=== PATIENT | female | born 1930 | race Caucasian/White ===

== ENCOUNTER 2016-10-22 06:51 | Emergency (ER) | payer OTHER ==
[~2016-10-22] VITALS: Ht 154.9 cm; Wt 89.9 kg
[~2016-10-22 06:51] MED LIST: ASPIR-TRIN325 M1 PO; Ativan PO; CIPRO500 MG PO; FLAGYL500 MG PO; GLIPIZIDE10 MG PO; GLIPIZIDE5 MG PO; GLUCOPHAGE1000 MG PO; GLUCOPHAGE500 MG PO; Glucophage PO; Glucophage XR,Fortam PO; KEFLEX250 MG PO; LASIX40 MG PO; LIPITOR20 MG PO; LORAZEPAM0.5 MG PO; PERCOCET 5/31 TABLET PO; PROVENTIL HFA6.7 GM IH; Proventil,Ventolin H IH; SPIRIVA1 INHALATI IH; Symbicort 80-4.5 mcg IH; TRAMADOL HCL100 MG PO; ZITHROMAX250 MG PO; ZOFRAN4 MG PO
[2016-10-22] MEDS ORDERED: MOTRIN800 MG PO (07:15)
[2016-10-22] MEDS ORDERED: PREDNISONE20 MG PO (07:15)
[2016-10-22] MEDS ORDERED: FLEXERIL10 MG PO (07:15)
[2016-10-22 08:07] VITALS: BP 139/95
== END 2016-10-22 08:08 | disposition home or self-care (01) ==
LOC: EME 06:51
DX: M54.32 Sciatica, left side (principal); J45.909 Unspecified asthma, uncomplicated; J44.9 Chronic obstructive pulmonary disease, unspecified; E11.9 Type 2 diabetes mellitus without complications; Z79.84 Long term (current) use of oral hypoglycemic drugs; Z87.891 Personal history of nicotine dependence
CPT/HCPCS: 99281; 99283; J1885; J7512

== ENCOUNTER 2017-04-02 22:05 | Inpatient (IN) | payer OTHER ==
[~2017-04-02] VITALS: Ht 154.9 cm; Wt 87.3 kg
[~2017-04-02 22:05] MED LIST changes: +DULERA 100 MCG/13 GM IH; +FLEXERIL10 MG PO; +MOTRIN800 MG PO; +PREDNISONE20 MG PO; +REQUIP0.25 MG PO; +TYLENOL EXTRA500 MG PO
[2017-04-03 06:06] VITALS: BP 100/50
[2017-04-03 06:22] LABS: POINT-OF-CARE METER ID UU14174212
[2017-04-03 06:31] LABS: PROTHROMBIN TIME 11.1 SEC (10.2-12.9)
[2017-04-03 06:34] LABS: PTT 30.8 SEC (25-37)
[2017-04-03 10:25] LABS: POINT-OF-CARE METER ID UU13113675
[2017-04-03 13:17] VITALS: BP 143/76
[2017-04-03 15:30] VITALS: BP 144/70
[2017-04-03 19:27] VITALS: BP 158/80
[2017-04-03 23:34] VITALS: BP 131/71
[2017-04-04 04:33] VITALS: BP 147/65
[2017-04-04 06:45] LABS: HEMATOCRIT 33.4 % (36.0-46.0)
[2017-04-04 07:40] VITALS: BP 117/62
[2017-04-04 07:56] VITALS: BP 122/62
[2017-04-04] MEDS ORDERED: ASPIRIN EC325 MG PO (08:05)
[2017-04-04] MEDS ORDERED: HYDROCODON-ACE1 EAC7 PO (08:06)
[2017-04-04 11:34] VITALS: BP 132/81
[2017-04-04 12:14] VITALS: BP 136/68
== END 2017-04-04 15:33 | disposition home or self-care (01) | DRG 483 ==
LOC: ENRESERV 22:05 → 3EAST 04-03 05:16 → 2SOUTH 04-03 05:16 → ENRESERV 04-03 12:18 → 3EAST 04-03 13:16 → 2SOUTH 04-03 15:05 → 3EAST 04-04 15:33
PROVIDERS: Orthopaedic Surgery
PROC: 0RRJ00Z Replacement of Right Shoulder Joint with Reverse Ball and Socket Synthetic Substitute, Open Approach (ICD-10-PCS; principal; 2017-04-03)
DX: M19.011 Primary osteoarthritis, right shoulder (principal); E11.9 Type 2 diabetes mellitus without complications; J44.9 Chronic obstructive pulmonary disease, unspecified; E66.9 Obesity, unspecified; Z87.891 Personal history of nicotine dependence; G25.81 Restless legs syndrome; K21.0 Gastro-esophageal reflux disease with esophagitis; Z68.37 Body mass index [BMI] 37.0-37.9, adult; E78.5 Hyperlipidemia, unspecified; F41.9 Anxiety disorder, unspecified; M81.0 Age-related osteoporosis without current pathological fracture
CPT/HCPCS: 82948; 85014; 85018; 85610; 85730; 94640; 94799; 99202; C1713; J0131; J0330; J0690; J1100; J2250; J2405; J2795; J3010; J7030; J7050